=== PATIENT | female | born 1950 | race Caucasian/White ===

== ENCOUNTER 2019-01-18 09:25 | Inpatient (IN) | payer MEDICARE, BC ==
[2019-01-18] MEDS ORDERED: Ketorolac Tromethamine 30 MG/ML VIAL ONE (09:37)
[2019-01-18] MEDS ORDERED: Piperacillin/Tazobactam 3.375 GM VIAL ONE (09:37)
--- NOTE | 2019-01-18 11:05 | CT ---
CT OF BRAIN PERFORMED WITH AND WITHOUT CONTRAST ENHANCEMENT: HISTORY: Altered mental status and history of lung cancer. FINDINGS: Ventricular and cisternal system shows fairly age-appropriate change. There are no signs of intracer ebral hemorrhage or extraaxial fluid collections. On postcontrast images, I see no signs of any meta static disease. The mastoid air cells and visualized sinuses are clear. IMPRESSION: No acute intracranial abnormalities. POS: [facility]
--- NOTE | 2019-01-18 11:31 | CT ---
CT OF CHEST AND ABDOMEN AND PELVIS PERFORMED WITH IV CONTRAST ENHANCEMENT: Date: 01/18/19 HISTORY: Altered mental status, fever, lung cancer, and abdominal pain. COMPARISON: Most recent CT examination available which is 01/07/15. FINDINGS: CT CHEST: There has been development of apical pleural thickening in the left lung apex. This is new as compare d to the 2015 study. There is no bony destruction associated with this. There was a left upper lobe 5 mm pulmonary nodule which is no longer visualized. On the right side, there are parenchymal changes with some collapse associated with the right lower l obe. I am not certain whether this may be related to previous radiation. There are some calcified hil ar lymph nodes present. It would be helpful to have any interim films for comparison. There is no brittany dence of any new pulmonary nodules or evidence of any infiltrative process. Coronary artery calcifica tions are present. CT ABDOMEN: CT of abdomen was performed with contrast enhancement. Hypodensities within the liver appear to repre sent cysts. They were noted on the previous exam. The spleen, pancreas, and gallbladder regions appea r unremarkable. Right and left adrenal glands, and right and left kidneys are normal in size. There is no significant periaortic or mesenteric adenopathy. CT PELVIS: CT of pelvis was performed with contrast enhancement. A moderate amount of stool is seen in the recto sigmoid colon. Bladder is not distended. There is no pelvic lymphadenopathy or mass. Review of osseous structures do not show any evidence of any lytic or blastic bony change. IMPRESSION: 1. Area of apical pleural thickening involving the left upper lobe. This is new as compared to the 2 015 study. There are no bony destructive changes associated with this. This could be related to a noni plastic process. Another possibility is that the patient has had radiation to this area. Clinical cor relation is recommended. 2. Chronic atelectatic changes in the right lower lobe. This is probably also on the basis of previo us radiation. 3. Stable hepatic cysts. No acute findings of the abdomen or pelvis. POS: [facility]
--- NOTE | 2019-01-18 14:07 | HP ---
REASON FOR ADMISSION: Altered mental status, lactic acidosis, hyponatremia. HISTORY OF PRESENT ILLNESS: A 68-year-old female, who has underlying history of small cell lung cancer as well as history of hypertension, COPD, who was initially evaluated at [facility] for altered mental status. The patient is not able to provide any history and she is not participating with any history and examination, so it is very difficult to obtain any history from her, though most of the history obtained from emergency room record. As per emergency room report, she was seen normal 3 days ago. As per history, the patient ran out her blood pressure medication and her blood pressure was getting worse. She did not take any blood pressure medication for last 7 days. When she presented to [facility], she was hypertensive, tachycardic, and febrile with temperature of 101. CT brain was unremarkable. She had lumbar puncture done that also came back negative. At [facility], she remained hypertensive and tachycardic. She was given Tylenol 1 g and vancomycin and IV fluid, and subsequently, she was sent to our emergency room for evaluation. The patient has history of lung cancer and previously she followed by Dr. Hyman and Dr. Vallejo. Current status of her cancer is not known. In our emergency room, the patient had CT abdomen and pelvis, which showed area of apical pleural thickening in left upper lobe, chronic changes noted in the right lower lobe. PAST MEDICAL HISTORY: Small cell lung cancer, hypertension, COPD/asthma, history of tobacco abuse disorder, and degenerative joint disease. PAST PSYCHIATRIC HISTORY: Anxiety and depression. PAST SURGICAL HISTORY: x1, tonsillectomy, right ankle surgery, and lung biopsy. ALLERGIES: LISINOPRIL GIVES ANAPHYLAXIS. PENICILLIN GIVES ANAPHYLAXIS. MORPHINE GIVES NAUSEA AND VOMITING. CURRENT HOME MEDICATIONS: 1. Aspirin 81 mg daily. 2. Metoprolol. 3. Breo Ellipta. 4. Azelastine nasal spray. The patient did not bring her medication, so unable to verify. EMERGENCY ROOM COURSE: The patient is given Tylenol 1 g, vancomycin 1.5 g, and IV fluid at [facility]. SOCIAL HISTORY: The patient has history of smoking in the past. She abuses marijuana. She also has history of smoking. It is unclear whether the patient quit smoking completely. FAMILY HISTORY: Nothing significant and the patient is not able to provide any family history at this point. Based on old record, the patient has family history of NE to her mother in her 50s and colon and lung cancer also runs among several family members. REVIEW OF SYSTEMS: All review of system tried to review with the patient, but unable to review at this point because of altered mental status. PHYSICAL EXAMINATION: VITAL SIGNS: Currently, blood pressure 174/89, pulse 124, respiratory rate 24, temperature 100.1, saturation 99% on room air, and initially, temperature 101 and she was hypertensive. GENERAL: The patient is completely disoriented, arousable, not following any significant command. HEENT: Head; normocephalic, atraumatic. Eyes; pupils round and reactive to light. Extraocular muscle intact. ENT, dry mucous membranes. No oral lesion. No pharyngeal erythema. No exudate. NECK: Supple. No JVD. No thyromegaly. No carotid bruit. LUNGS: Coarse breath sounds, but no obvious rhonchi or rales. No wheeze. No accessory muscles of respiration in use. CARDIAC: S1-S2 regular. Tachycardia. No murmur. No gallop. No rub. ABDOMEN: Soft. Bowel sounds present. Nontender. Nondistended. No organomegaly. No mass. No suprapubic tenderness. BACK: Unremarkable. No CVA tenderness. EXTREMITIES: Upper extremity, passive movement of all joints is normal. Lower extremity, no edema. Good distal pulsation. SKIN: No skin rash. HEMATOLOGICAL SYSTEM: No lymphadenopathy. NEUROLOGIC: The patient is moving all 4 limbs. The patient is altered, so detailed neurological examination is not possible. PSYCHIATRIC: Unable to assess at this point, but based on the report, the patient has history of depression and she also expressed herself to her about suicidal ideation. IMAGING STUDIES: EKG showing sinus tachycardia, right atrial enlargement. Head CT based on my review, no acute intracranial process. CT of chest, abdomen and pelvis showing new apical pleural thickening. LABORATORY DATA: CBC; WBC 11.7, hemoglobin 14.9, and platelet 252. BMP; sodium 128, potassium 4.0, chloride 85, carbon dioxide 25, anion gap 22, BUN 15, creatinine 1.03, glucose 133, and calcium 10.6. Lactic acid 4.7 and then repeat one 2.0. LFT; AST 30, ALT 21, alkaline phosphatase 97, and albumin 4.8. Urinalysis; rbc present, protein plus, ketone plus. CSF negative for any infection. Urine drug screen positive for cannabinoids. Serum drug screen negative. ASSESSMENT AND PLAN: 1. Acute encephalopathy suspecting metabolic as well as possibly sepsis related. CT brain is negative and I could not see any focal neurological deficit. The patient has hyponatremia, lactic acidosis, and possibly sepsis is contributing to her encephalopathy. Her CSF is unremarkable. 2. Sepsis, unclear source. CSF is negative for infection. Chest x-ray and CT chest showing new apical pleural thickening in left upper lobe, but this could be new cancer versus old cancer versus radiation changes. The patient also has chronic atelectatic changes on the right lower lobe. Underlying aspiration cannot be entirely excluded. Her urinalysis showing hematuria. We will follow up on blood and urine culture result. We will start empiric antibiotic therapy with vancomycin and levofloxacin. 3. Hyponatremia, suspecting from syndrome of inappropriate antidiuretic hormone secretion, but we will give her IV fluid given dehydration. We will repeat BMP tomorrow. 4. Lactic acidosis, likely related with sepsis. Repeat lactic acid level is normal. Source of infection is not clear. 5. History of lung cancer. Status of her lung cancer is not known. We will obtain old record and get more information. 6. Anxiety and depression. The patient will need [facility] evaluation given her suicidal ideation at home. We will continue her antidepression medication after confirmation. 7. Chronic obstructive pulmonary disease/asthma. We will continue DuoNeb therapy q.6 hourly. 8. Hypertension with hypertensive urgency. We will use clonidine and labetalol p.r.n. basis. 9. Deep venous thrombosis prophylaxis, Lovenox 40 mg subcu daily. 10. Gastrointestinal prophylaxis, Pepcid 20 mg p.o. or IV b.i.d. CODE STATUS: The patient will be kept as a full code. The patient does not have any surrogate decision maker. Cannabis abuse. DISPOSITION PLAN: Based on clinical course, we are expecting the patient's stay in hospital more than 2 midnights. Plan of care discussed with the patient in detail. Job ID: [id number]
[2019-01-18] MEDS ORDERED: Ondansetron ODT 4 MG TAB SL PRN (14:47)
[2019-01-18] MEDS ORDERED: Ondansetron PF 4 MG/2 ML Vial IVP PRN (14:47)
[2019-01-18] MEDS ORDERED: Acetaminophen 325 MG TAB PO PRN ×2 (14:47→15:06)
[2019-01-18] MEDS ORDERED: Sodium Chloride 0.9% 1,000 ML IV SCH (14:47)
[2019-01-18] MEDS ORDERED: Cepastat Lozenges 1 LOZ PO PRN (15:06)
[2019-01-18] MEDS ORDERED: Artificial Tears 18 DROP/0.9 ML EA EYE PRN (15:06)
[2019-01-18] MEDS ORDERED: Bisacodyl 10 MG SUPP PR PRN (15:06)
[2019-01-18] MEDS ORDERED: Senokot S 8.6-50 MG TAB PO PRN (15:06)
[2019-01-18] MEDS ORDERED: Zolpidem Tartrate 5 MG TAB PO PRN (15:06)
[2019-01-18] MEDS ORDERED: Diabetic Tussin 200 MG/10 ML UDCUP PO PRN (15:06)
[2019-01-18] MEDS ORDERED: Pharmacy to Dose 1 EACH VANCOMYCIN IVPB PRN ×2 (15:06→15:13)
[2019-01-18] MEDS ORDERED: Calcium Carbonate 500 MG ChewTAB PO PRN (15:06)
[2019-01-18] MEDS ORDERED: Sodium Chloride 0.65% Nasal 44 ML BOT EA NARE PRN (15:06)
[2019-01-18] MEDS ORDERED: Loperamide HCl 2 MG CAP PO PRN (15:06)
[2019-01-18] MEDS ORDERED: cloNIDine 0.1 MG TAB PO PRN (15:06)
[2019-01-18] MEDS ORDERED: Loratadine 10 MG TAB PO PRN (15:06)
[2019-01-18 15:09] VITALS: BMI 23.0
[2019-01-18] MEDS ORDERED: Multivitamins, Adult 10 ML, Thiamine HCl 100 MG, Folic Acid 1 MG in Dextrose 5 %-0.45 %... IV SCH ×3 (16:00→16:30)
[2019-01-18] MEDS: Dextrose 5 % And 0.9 % NaCl 1,000 ML IV SCH (16:32)
[2019-01-18 17:12] LABS: Amphetamine Not Detected (NotDetected); Barbiturates Screen Not Detected (NotDetected); Benzodiazepine Screen Not Detected (NotDetected); Cocaine Metabolite Screen Not Detected (NotDetected); Medtox Control Line Valid? VALID (VALID); Medtox Reader # READER 4; Methadone Not Detected (NotDetected); Methamphetamine Not Detected (NotDetected); Opiate Screen Not Detected (NotDetected); Oxycodone Screen Not Detected (NotDetected); Phencyclidine (PCP) Not Detected (NotDetected); THC/Cannabinoid Screen Detected (NotDetected); Tricyclic Screen Not Detected (NotDetected)
[2019-01-18] MEDS ORDERED: ISOVUE-370 76%-LOCM 1 ML ONE (18:14)
[2019-01-18] MEDS ORDERED: Sodium Chloride 0.9% 500 ML IV SCH (19:45)
[2019-01-18] MEDS: Famotidine/PF 20 mg/2ml Vial SLOW IVP SCH (20:17)
[2019-01-18] MEDS: Famotidine 20 MG TAB PO SCH (21:19)
[2019-01-18] MEDS ORDERED: Labetalol HCl 100 MG/20 ML VIAL SLOW IVP PRN (22:33)
[2019-01-18] MEDS ORDERED: Vancomycin HCl 1.5 GM in Sodium Chloride 0.9% 250 ML 300 ML IVPB SCH (22:45)
[2019-01-19] MEDS: Dextrose 5 % And 0.9 % NaCl 1,000 ML IV SCH ×3 (03:54→22:43)
[2019-01-19] MEDS ORDERED: Lorazepam 2 MG/ML VIAL SLOW IVP SCH (04:45)
[2019-01-19 05:22] LABS: #Lymphocytes 0.4 thou/uL (1.20-3.40); #Monocytes 0.8 thou/uL (0.11-0.59); #Neutrophils 7.4 thou/uL (1.40-6.50); %Eosinophils 0.1 % (0.0-10.0); %Monocytes 9.5 % (0.0-10.0); %Neutrophils 85.4 % (42.0-75.0); Hemoglobin 13.8 g/dL (12.0-16.0); Mean Corpuscular HGB CONC 34.4 g/dL (32.0-36.0); Mean Corpuscular Hemoglobin 31.8 pg (27.0-31.0); Mean Corpuscular Volume 92.6 fL (78.0-98.0); Mean Platelet Volume 6.4 fL (7.4-10.4); Platelet Count 215 thou/uL (130-400); RBC Distribution Width 12.5 % (11.5-14.5); Red Blood Cell (RBC) Count 4.33 mill/uL (4.20-5.40); White Blood Cell (WBC) Count 8.7 thou/uL (4.8-10.8)
[2019-01-19 05:49] LABS: ALT (SGPT) 20 U/L (8-55); AST (SGOT) 42 U/L (5-34); Albumin 4.1 g/dL (3.4-4.8); Alkaline Phosphatase 74 U/L (40-110); Anion Gap 15 mmol/L (10-20); BUN (Urea Nitrogen) 10 mg/dL (9.8-20.1); Bilirubin, Total 0.6 mg/dL (0.2-1.2); Calc. Creatinine Clearance 51 mL/min (70-130); Calcium 9.1 mg/dL (7.8-10.44); Carbon Dioxide 25 mmol/L (23-31); Chloride 91 mmol/L (98-107); Estimated GFR-MDRD 62; Glucose 129 mg/dL (80-115); Magnesium 1.3 mg/dL (1.6-2.6); Protein, Total 7.1 g/dL (6.0-8.3); Sodium 128 mmol/L (136-145)
[2019-01-19] MEDS ORDERED: Lorazepam 1 MG TAB PO PRN (05:51)
[2019-01-19] MEDS ORDERED: Magnesium Sulfate 4 GM in Sodium Chloride 0.9% 250 ML 250 ML IVPB SCH (07:30)
[2019-01-19] MEDS: Cyanocobalamin (Vitamin B-12) 1,000 MCG TAB PO SCH (08:29)
[2019-01-19] MEDS: Multivitamin W/ Minerals 1 TAB PO SCH (08:30)
[2019-01-19] MEDS: Famotidine 20 MG TAB PO SCH ×2 (08:30→23:57)
[2019-01-19] MEDS: Saccharomyces boulardii 250 MG CAP PO SCH (08:30)
[2019-01-19] MEDS: Thiamine 100 MG TAB PO SCH (08:30)
[2019-01-19] MEDS: Folic Acid 1 MG TAB PO SCH (08:30)
[2019-01-19] MEDS: Famotidine/PF 20 mg/2ml Vial SLOW IVP SCH ×2 (08:37→20:24)
[2019-01-19] MEDS: Enoxaparin Sodium 40 MG/0.4 ML SYRINGE SC SCH (08:37)
--- NOTE | 2019-01-19 08:55 | RAD ---
FRONTAL RADIOGRAPH CHEST PORTABLE UPRIGHT: DATE: 01/19/2019. COMPARISON: None. HISTORY: Lung cancer, sepsis. FINDINGS: There is a mass density in the suprahilar region on the right which measures 3.1 cm in transverse dim ension, better assessed on recent CT examination of the chest performed 06/20/2018. There is increased soft tissue density in the left lung apex as well, also better evaluated on recent CT. No focal consolidation or alveolar edema. IMPRESSION: Mass-like opacity in the right perihilar region and left lung apex. No focal consolidation or alveol ar edema. POS: [facility]
[2019-01-19] MEDS ORDERED: Prevnar 13-Val Conj/PF 0.5 ML SYRINGE IM ONE (09:00)
--- NOTE | 2019-01-19 10:37 | PDOC.HOSPP ---
- Subjective Encounter Date: 01/19/19 Encounter Time: 09:45 Subjective: pt is still does not want to talk, she opens her eye but does not talk, her bedside, no fever today - Objective Vital Signs & Weight: Vital Signs (12 hours) Temp Pulse Resp BP BP Pulse Ox 01/19/19 08:10 154/72 H 01/19/19 08:02 95 01/19/19 07:30 97.5 F L 119 H 18 154/72 H 18 L 01/19/19 04:50 166/90 H 01/19/19 04:33 113 H 166/90 H 01/19/19 04:01 124 H 174/93 H 01/19/19 03:47 97.9 F 123 H 16 192/86 H 94 L 01/19/19 03:19 95 01/19/19 00:15 159/80 H 01/19/19 00:00 98.5 F 122 H 16 159/80 H 92 L Weight Weight 118 lb I&O: 01/18/19 01/19/19 01/20/19 06:59 06:59 06:59 Intake Total 1250 Output Total 825 600 Balance 425 -600 Result Diagrams: 01/19/19 05:10 01/19/19 05:10 Additional Labs: Accuchecks 01/18/19 01/18/19 19:35 16:48 POC Glucose 105 116 H Radiology Reviewed by me: Yes (chest xray reviewed) EKG Reviewed by me: Yes (nsr) Hospitalist ROS - Review of Systems ROS unobtainable: due to mental status - Medication Medications: Active Medications Generic Name Dose Route Start Last Admin Trade Name Catrina PRN Reason Stop Dose Admin Cyanocobalamin 1,000 mcg 01/19/19 09:00 01/19/19 08:29 Vitamin B-12 PO Not Given DAILY [facility] Enoxaparin Sodium 40 mg 01/19/19 09:00 01/19/19 08:37 Lovenox SC 40 mg 0900 DENISE Administration Famotidine 20 mg 01/18/19 21:00 01/19/19 08:37 Pepcid SLOW IVP 20 mg Q12HR DENISE Administration Famotidine 20 mg 01/18/19 21:00 01/19/19 08:30 Pepcid PO Not Given BID DENISE Folic Acid 1 mg 01/19/19 09:00 01/19/19 08:30 Folvite PO Not Given DAILY [facility] Levofloxacin 750 mg/ Device 150 mls @ 100 mls/hr 01/18/19 16:00 01/18/19 18: 07 IVPB 150 mls 1600 DENISE Administration Dextrose/Sodium Chloride 1,000 mls @ 100 mls/hr 01/18/19 15:06 01/19/19 03:54 D5 0.9% Ns IV 1,000 mls .Q10H DENISE Administration Iron/Minerals/Multivitamins 1 tab 01/19/19 09:00 01/19/19 08:30 Theragran M PO Not Given DAILY [facility] Labetalol HCl 20 mg 01/18/19 22:33 01/19/19 04:01 Normodyne SLOW IVP 01/19/19 22:34 20 mg ONE PRN Administration SBP Greater Than 170 Saccharomyces Boulardii 250 mg 01/19/19 09:00 01/19/19 08:30 Florastor PO Not Given DAILY [facility] Thiamine HCl 100 mg 01/19/19 09:00 01/19/19 08:30 Thiamine PO Not Given DAILY [facility] - Exam General Appearance: NAD Eye: PERRL, anicteric sclera ENT: normocephalic atraumatic, no oropharyngeal lesions Neck: supple, symmetric, no JVD, no thyromegaly Heart: RRR, no murmur, no gallops, no rubs Respiratory: CTAB, no wheezes, no rales, no ronchi Gastrointestinal: soft, non-tender, non-distended, normal bowel sounds Extremities: no cyanosis, no clubbing, no edema Skin: normal turgor, no lesions, no rashes Neurological: no focal deficits Musculoskeletal: normal tone, normal strength Hosp A/P (1) Acute metabolic encephalopathy Code(s): G93.41 - METABOLIC ENCEPHALOPATHY Status: Acute (2) Sepsis Code(s): A41.9 - SEPSIS, UNSPECIFIED ORGANISM Status: Acute (3) Hypomagnesemia Code(s): E83.42 - HYPOMAGNESEMIA Status: Acute (4) Hyponatremia Code(s): E87.1 - HYPO-OSMOLALITY AND HYPONATREMIA Status: Acute (5) Hypokalemia Code(s): E87.6 - HYPOKALEMIA Status: Acute (6) Lactic acidosis Code(s): E87.2 - ACIDOSIS Status: Acute (7) Hypertension Code(s): I10 - ESSENTIAL (PRIMARY) HYPERTENSION Status: Chronic (8) H/O: lung cancer Code(s): Z85.118 - PERSONAL HISTORY OF MALIGNANT NEOPLASM OF BRONCHUS AND LUNG Status: Chronic (9) Anxiety and depression Code(s): F41.9 - ANXIETY DISORDER, UNSPECIFIED; F32.9 - MAJOR DEPRESSIVE DISORDER, SINGLE EPISODE, UNSPECIFIED Status: Chronic (10) COPD (chronic obstructive pulmonary disease) Status: Chronic (11) Alcohol abuse Code(s): F10.10 - ALCOHOL ABUSE, UNCOMPLICATED Status: Chronic - Plan old records reviewed/req, plan discussed w/ family, continue antibiotics 01/19/19- replace potassium, replace magnesium, follow culture result, discussed with , correct metabolic parameter and see how much she improves, suspecting underlying psychiatry problem as well, continue folic acid , vitamin B12, thiamin and theragram M, will repeat labs tomorrow, medication reviewed as above, symptomatic treatment, start PT, sitter bedside
[2019-01-19] MEDS: Potassium Chloride 10 MEQ in Premix Bag 1 BAG IVPB SCH ×3 (11:46→20:24)
[2019-01-19] MEDS: Labetalol HCl 100 MG/20 ML VIAL SLOW IVP PRN (15:17)
[2019-01-19] MEDS ORDERED: Lorazepam 2 MG/ML VIAL SLOW IVP PRN (21:31)
[2019-01-20] MEDS: Vancomycin HCl 500 MG in Sodium Chloride 0.9% 100 ML IVPB SCH ×2 (00:50→23:45)
[2019-01-20] MEDS ORDERED: Potassium Chloride 20 MEQ in Premix Bag 1 BAG IVPB SCH (03:00)
[2019-01-20] MEDS ORDERED: Dextrose 5 % And 0.9 % NaCl 1,000 ML IV SCH (07:13)
[2019-01-20] MEDS: Mometasone/Formoterol 120 PUFF INHALER INH SCH ×2 (07:48→19:57)
[2019-01-20] MEDS ORDERED: Mometasone/Formoterol 120 PUFF INHALER ONE (07:50)
[2019-01-20 07:51] LABS: #Lymphocytes 0.7 thou/uL (1.20-3.40); #Monocytes 0.9 thou/uL (0.11-0.59); #Neutrophils 5.9 thou/uL (1.40-6.50); %Basophils 0.2 % (0.0-1.0); %Eosinophils 0.5 % (0.0-10.0); %Lymphocytes 8.7 % (21.0-51.0); %Monocytes 11.3 % (0.0-10.0); %Neutrophils 79.2 % (42.0-75.0); Hemoglobin 13.6 g/dL (12.0-16.0); Mean Corpuscular HGB CONC 34.2 g/dL (32.0-36.0); Mean Corpuscular Hemoglobin 31.6 pg (27.0-31.0); Mean Corpuscular Volume 92.5 fL (78.0-98.0); Mean Platelet Volume 6.5 fL (7.4-10.4); Platelet Count 217 thou/uL (130-400); RBC Distribution Width 12.4 % (11.5-14.5); Red Blood Cell (RBC) Count 4.32 mill/uL (4.20-5.40); White Blood Cell (WBC) Count 7.5 thou/uL (4.8-10.8)
[2019-01-20] MEDS ORDERED: Potassium Chloride 20 MEQ in Sodium Chloride 0.9% 250 ML 250 ML IVPB SCH (08:00)
[2019-01-20 08:12] LABS: Anion Gap 12 mmol/L (10-20); BUN (Urea Nitrogen) 10 mg/dL (9.8-20.1); Calc. Creatinine Clearance 51 mL/min (70-130); Calcium 9.2 mg/dL (7.8-10.44); Carbon Dioxide 26 mmol/L (23-31); Chloride 95 mmol/L (98-107); Estimated GFR-MDRD 62; Glucose 106 mg/dL (80-115); Magnesium 2.2 mg/dL (1.6-2.6); Potassium 3.1 mmol/L (3.5-5.1); Sodium 130 mmol/L (136-145)
[2019-01-20 08:18] LABS: Phosphorus 1.9 mg/dL (2.3-4.7)
[2019-01-20] MEDS ORDERED: Potassium Phosphate 30 MMOL in Sodium Chloride 0.9% 500 ML IVPB SCH (08:45)
[2019-01-20] MEDS ORDERED: AZELASTINE HCL EA NARE SCH (09:00)
[2019-01-20] MEDS ORDERED: Non-Formulary Item 1 EACH (Fluticasone/Vilanterol [Breo Ellipta] 1 INH) PO SCH (09:00)
[2019-01-20] MEDS ORDERED: Non-Formulary Item 1 EACH (Sertraline Hcl [Zoloft] 100 MG) PO SCH (09:00)
[2019-01-20] MEDS: Famotidine/PF 20 mg/2ml Vial SLOW IVP SCH (09:36)
[2019-01-20] MEDS: Dextrose 5 % And 0.9 % NaCl 1,000 ML IV SCH (09:37)
[2019-01-20] MEDS: Saccharomyces boulardii 250 MG CAP PO SCH (09:38)
[2019-01-20] MEDS: Cyanocobalamin (Vitamin B-12) 1,000 MCG TAB PO SCH (09:38)
[2019-01-20] MEDS: Multivitamin W/ Minerals 1 TAB PO SCH (09:38)
[2019-01-20] MEDS: Famotidine 20 MG TAB PO SCH ×2 (09:38→20:45)
[2019-01-20] MEDS: Enoxaparin Sodium 40 MG/0.4 ML SYRINGE SC SCH (09:39)
[2019-01-20] MEDS: Thiamine 100 MG TAB PO SCH (09:39)
[2019-01-20] MEDS: Folic Acid 1 MG TAB PO SCH (09:39)
[2019-01-20] MEDS: Azelastine 137 MCG/Spray 30 ML NS SCH ×2 (09:40→20:47)
--- NOTE | 2019-01-20 09:59 | PDOC.HOSPP ---
- Subjective Encounter Date: 01/20/19 Encounter Time: 07:00 Subjective: today pt is talking but still she has irrelevant talk, no fever, bedside Patient seen and examined. No new complaints. No overnight events - Objective Vital Signs & Weight: Vital Signs (12 hours) Temp Pulse Resp BP Pulse Ox 01/20/19 07:48 116 H 20 97 01/20/19 07:30 98.1 F 117 H 20 176/90 H 96 01/20/19 04:18 96.7 F L 104 H 20 152/80 H 97 01/20/19 03:12 94 L Weight Weight 118 lb I&O: 01/19/19 01/20/19 01/21/19 06:59 06:59 06:59 Intake Total 1250 Output Total 825 875 Balance 425 -875 Result Diagrams: 01/20/19 07:25 01/20/19 07:25 EKG Reviewed by me: Yes (sinus tachycardia) Hospitalist ROS - Review of Systems ROS unobtainable: due to mental status - Medication Medications: Active Medications Generic Name Dose Route Start Last Admin Trade Name Damianq PRN Reason Stop Dose Admin Cyanocobalamin 1,000 mcg 01/19/19 09:00 01/19/19 08:29 Vitamin B-12 PO Not Given DAILY [facility] Enoxaparin Sodium 40 mg 01/19/19 09:00 01/19/19 08:37 Lovenox SC 40 mg 0900 DENISE Administration Famotidine 20 mg 01/18/19 21:00 01/19/19 23:57 Pepcid PO Not Given BID [facility] Folic Acid 1 mg 01/19/19 09:00 01/19/19 08:30 Folvite PO Not Given DAILY [facility] Levofloxacin 750 mg/ Device 150 mls @ 100 mls/hr 01/18/19 16:00 01/19/19 15: 22 IVPB 150 mls 1600 DENISE Administration Vancomycin HCl 500 mg/ Sodium 100 mls @ 100 mls/hr 01/19/19 23:00 01/20/19 00 :50 Chloride IVPB 100 mls 2300 DENISE Administration Iron/Minerals/Multivitamins 1 tab 01/19/19 09:00 01/19/19 08:30 Theragran M PO Not Given DAILY [facility] Labetalol HCl 20 mg 01/18/19 15:06 01/19/19 15:17 Normodyne SLOW IVP 4 ml Q4H PRN Administration SBP > 180 and HR >/= 70 Lorazepam 0.5 mg 01/19/19 21:31 01/19/19 21:47 Ativan SLOW IVP 0.5 mg Q4H PRN Administration Anxiety/Agitation Mometasone Furoate/Formoterol Fumar 2 puff 01/20/19 18:30 01/20/19 07:48 Dulera 100 Mcg/5 Mcg Inhaler INH 2 puff BID-RT DENISE Administration Saccharomyces Boulardii 250 mg 01/19/19 09:00 01/19/19 08:30 Florastor PO Not Given DAILY [facility] Thiamine HCl 100 mg 01/19/19 09:00 01/19/19 08:30 Thiamine PO Not Given DAILY [facility] - Exam General Appearance: NAD, awake alert Eye: PERRL, anicteric sclera ENT: normocephalic atraumatic, no oropharyngeal lesions Neck: supple, symmetric, no JVD, no thyromegaly Heart: RRR, no murmur, no gallops, no rubs Heart - other findings: tachycardia Respiratory: no rales, wheezes Gastrointestinal: soft, non-tender, non-distended, normal bowel sounds Extremities: no cyanosis, no clubbing, no edema Skin: normal turgor, no lesions Neurological: no focal deficits Musculoskeletal: normal tone, normal strength Psychiatric: normal affect, not oriented Hosp A/P (1) Acute metabolic encephalopathy Code(s): G93.41 - METABOLIC ENCEPHALOPATHY Status: Acute Plan: improving (2) Sepsis Code(s): A41.9 - SEPSIS, UNSPECIFIED ORGANISM Status: Acute Plan: so far culture negative, unclear source (3) Hypomagnesemia Code(s): E83.42 - HYPOMAGNESEMIA Status: Resolved (4) Hyponatremia Code(s): E87.1 - HYPO-OSMOLALITY AND HYPONATREMIA Status: Acute Plan: improving (5) Hypokalemia Code(s): E87.6 - HYPOKALEMIA Status: Acute (6) Lactic acidosis Code(s): E87.2 - ACIDOSIS Status: Resolved (7) Hypertension Code(s): I10 - ESSENTIAL (PRIMARY) HYPERTENSION Status: Chronic (8) H/O: lung cancer Code(s): Z85.118 - PERSONAL HISTORY OF MALIGNANT NEOPLASM OF BRONCHUS AND LUNG Status: Chronic (9) Anxiety and depression Code(s): F41.9 - ANXIETY DISORDER, UNSPECIFIED; F32.9 - MAJOR DEPRESSIVE DISORDER, SINGLE EPISODE, UNSPECIFIED Status: Chronic (10) COPD (chronic obstructive pulmonary disease) Status: Chronic (11) Alcohol abuse Code(s): F10.10 - ALCOHOL ABUSE, UNCOMPLICATED Status: Chronic (12) Hypophosphatemia Code(s): E83.39 - OTHER DISORDERS OF PHOSPHORUS METABOLISM Status: Acute - Plan old records reviewed/req, plan discussed w/ family, continue antibiotics, PT/OT , dc lois soto IVF 01/19/19- replace potassium, replace magnesium, follow culture result, discussed with , correct metabolic parameter and see how much she improves, suspecting underlying psychiatry problem as well, continue folic acid , vitamin B12, thiamin and theragram M, will repeat labs tomorrow, medication reviewed as above, symptomatic treatment, start PT, sitter bedside 01/20/19- today DC IVF, replace potassium phosphate, diet as tolerated, start PT /OT, continue empiric antibiotic today, discussed with , no need for sitter for suicide precaution. will repeat labs tomorrow, overall has some improvement,
[2019-01-20] MEDS ORDERED: Mometasone/Formoterol 120 PUFF INHALER INH SCH (18:30)
[2019-01-20 23:08] LABS: Vancomycin, Trough 8.3 ug/mL
[2019-01-20] MEDS ORDERED: Vancomycin HCl 750 MG in Sodium Chloride 0.9% 250 ML 250 ML IVPB SCH (23:59)
[2019-01-21] MEDS: Labetalol HCl 100 MG/20 ML VIAL SLOW IVP PRN (00:56)
[2019-01-21] MEDS: Mometasone/Formoterol 120 PUFF INHALER INH SCH ×2 (07:02→20:12)
[2019-01-21] MEDS ORDERED: K-Phos Neutral 250 MG TAB PO SCH (08:00)
[2019-01-21] MEDS: Saccharomyces boulardii 250 MG CAP PO SCH (08:38)
[2019-01-21] MEDS: Carvedilol 3.125 MG TAB PO SCH ×2 (08:38→18:21)
[2019-01-21] MEDS: Enoxaparin Sodium 40 MG/0.4 ML SYRINGE SC SCH (08:38)
[2019-01-21] MEDS: Folic Acid 1 MG TAB PO SCH (08:38)
[2019-01-21] MEDS: Amlodipine 5 MG TAB PO SCH (08:39)
[2019-01-21] MEDS: Thiamine 100 MG TAB PO SCH (08:39)
[2019-01-21] MEDS: Azelastine 137 MCG/Spray 30 ML NS SCH ×2 (08:45→21:32)
[2019-01-21] MEDS: Famotidine 20 MG TAB PO SCH ×3 (08:45→21:36)
[2019-01-21] MEDS: Cyanocobalamin (Vitamin B-12) 1,000 MCG TAB PO SCH (08:46)
[2019-01-21] MEDS: Multivitamin W/ Minerals 1 TAB PO SCH (08:46)
--- NOTE | 2019-01-21 09:36 | PDOC.HOSPP ---
- Subjective Encounter Date: 01/21/19 Encounter Time: 07:00 Subjective: pt is improving, she has memory issue and seems per is not a new problem , she is more alert and able to tell her name, . She is able to ambulate and eating OK - Objective Vital Signs & Weight: Vital Signs (12 hours) Temp Pulse Resp BP BP BP BP 01/21/19 08:39 110 H 01/21/19 07:56 98.1 F 102 H 20 188/95 H 01/21/19 07:02 107 H 12 01/21/19 06:51 01/21/19 06:50 107 H 12 01/21/19 04:00 97.8 F 99 18 163/80 H 01/21/19 03:23 01/21/19 01:35 96 173/80 H 01/21/19 01:10 102 H 18 01/21/19 00:56 112 H 189/89 H 01/20/19 23:59 98.1 F 112 H 18 183/89 H Pulse Ox 01/21/19 08:39 01/21/19 07:56 94 L 01/21/19 07:02 01/21/19 06:51 94 L 01/21/19 06:50 01/21/19 04:00 95 01/21/19 03:23 96 01/21/19 01:35 01/21/19 01:10 96 01/21/19 00:56 01/20/19 23:59 96 Weight Weight 118 lb I&O: 01/20/19 01/21/19 01/22/19 06:59 06:59 06:59 Intake Total 1115 360 Output Total 875 400 Balance -875 715 360 Result Diagrams: 01/20/19 07:25 01/20/19 07:25 EKG Reviewed by me: Yes (nsr) Hospitalist ROS - Review of Systems Respiratory: denies: cough, dry, shortness of breath, hemoptysis, SOB with excertion, pleuritic pain, sputum, wheezing, other Cardiovascular: denies: chest pain, palpitations, orthopnea, paroxysmal noc. dyspnea, edema, light headedness, other Gastrointestinal: denies: nausea, vomiting, abdominal pain, diarrhea, constipation, melena, hematochezia, other Genitourinary: denies: dysuria, frequency, incontinence, hematuria, retention, other Musculoskeletal: denies: neck pain, shoulder pain, arm pain, back pain, hand pain, leg pain, foot pain, other Other: not reliable due to her cognitive dysfunction - Medication Medications: Active Medications Generic Name Dose Route Start Last Admin Trade Name Freq PRN Reason Stop Dose Admin Acetaminophen 650 mg 01/18/19 15:06 01/20/19 09:39 Tylenol PO 650 mg Q4H PRN Administration Headache/Fever/Mild Pain (1-3) Albuterol/Ipratropium 3 ml 01/20/19 13:00 01/21/19 06:50 Duoneb NEB 3 ml [id number] DENISE Administration Amlodipine Besylate 5 mg 01/21/19 09:00 01/21/19 08:39 Norvasc PO 5 mg DAILY DENISE Administration Azelastine HCl 0 ml 01/20/19 09:00 01/21/19 08:45 Azelastine NS 2 spr BID DENISE Administration Carvedilol 3.125 mg 01/21/19 08:00 01/21/19 08:38 Coreg PO 3.125 mg BID-WM DENISE Administration Cyanocobalamin 1,000 mcg 01/19/19 09:00 01/21/19 08:46 Vitamin B-12 PO 1,000 mcg DAILY DENISE Administration Enoxaparin Sodium 40 mg 01/19/19 09:00 01/21/19 08:38 Lovenox SC 40 mg 0900 DENISE Administration Famotidine 20 mg 01/18/19 21:00 01/21/19 08:45 Pepcid PO 20 mg BID DENISE Administration Folic Acid 1 mg 01/19/19 09:00 01/21/19 08:38 Folvite PO 1 mg DAILY DENISE Administration Iron/Minerals/Multivitamins 1 tab 01/19/19 09:00 01/21/19 08:46 Theragran M PO 1 tab DAILY DENISE Administration Labetalol HCl 20 mg 01/18/19 15:06 01/21/19 00:56 Normodyne SLOW IVP 4 ml Q4H PRN Administration SBP > 180 and HR >/= 70 Lorazepam 0.5 mg 01/19/19 21:31 01/19/19 21:47 Ativan SLOW IVP 0.5 mg Q4H PRN Administration Anxiety/Agitation Mometasone Furoate/Formoterol Fumar 2 puff 01/20/19 18:30 01/21/19 07:02 Dulera 100 Mcg/5 Mcg Inhaler INH 2 puff BID-RT DENISE Administration Saccharomyces Boulardii 250 mg 01/19/19 09:00 01/21/19 08:38 Florastor PO 250 mg DAILY DENISE Administration Sertraline HCl 100 mg 01/20/19 09:00 01/21/19 08:39 Zoloft PO 100 mg DAILY DENISE Administration Sodium Chloride 10 ml 01/19/19 21:37 01/21/19 00:59 Flush - Normal Saline IVF 10 ml PRN PRN Administration Saline Flush Thiamine HCl 100 mg 01/19/19 09:00 01/21/19 08:39 Thiamine PO 100 mg DAILY DENISE Administration - Exam General Appearance: NAD, awake alert Eye: PERRL, anicteric sclera ENT: normocephalic atraumatic, no oropharyngeal lesions Neck: supple, symmetric, no JVD, no thyromegaly Heart: RRR, no murmur, no gallops, no rubs, normal peripheral pulses Respiratory: CTAB, no wheezes, no rales, no ronchi Gastrointestinal: soft, non-tender, non-distended, normal bowel sounds, no palpable masses, no hepatomegaly, no splenomegaly Extremities: no cyanosis, no clubbing, no edema Skin: normal turgor, no lesions, no rashes Neurological: cranial nerve grossly intact, no focal deficits Musculoskeletal: normal tone, normal strength Psychiatric: normal affect, normal behavior Hosp A/P (1) Acute metabolic encephalopathy Code(s): G93.41 - METABOLIC ENCEPHALOPATHY Status: Acute Plan: improving (2) Sepsis Code(s): A41.9 - SEPSIS, UNSPECIFIED ORGANISM Status: Acute Qualifiers: Sepsis type: sepsis due to unspecified organism Plan: unclear source, culture negative, no fever since admission (3) Hypomagnesemia Code(s): E83.42 - HYPOMAGNESEMIA Status: Resolved (4) Hyponatremia Code(s): E87.1 - HYPO-OSMOLALITY AND HYPONATREMIA Status: Acute (5) Hypokalemia Code(s): E87.6 - HYPOKALEMIA Status: Acute (6) Lactic acidosis Code(s): E87.2 - ACIDOSIS Status: Resolved (7) Hypertension Code(s): I10 - ESSENTIAL (PRIMARY) HYPERTENSION Status: Chronic (8) H/O: lung cancer Code(s): Z85.118 - PERSONAL HISTORY OF MALIGNANT NEOPLASM OF BRONCHUS AND LUNG Status: Chronic (9) Anxiety and depression Code(s): F41.9 - ANXIETY DISORDER, UNSPECIFIED; F32.9 - MAJOR DEPRESSIVE DISORDER, SINGLE EPISODE, UNSPECIFIED Status: Chronic (10) COPD (chronic obstructive pulmonary disease) Status: Chronic (11) Alcohol abuse Code(s): F10.10 - ALCOHOL ABUSE, UNCOMPLICATED Status: Chronic (12) Hypophosphatemia Code(s): E83.39 - OTHER DISORDERS OF PHOSPHORUS METABOLISM Status: Acute - Plan old records reviewed/req, plan discussed w/ family, PT/OT 01/19/19- replace potassium, replace magnesium, follow culture result, discussed with , correct metabolic parameter and see how much she improves, suspecting underlying psychiatry problem as well, continue folic acid , vitamin B12, thiamin and theragram M, will repeat labs tomorrow, medication reviewed as above, symptomatic treatment, start PT, sitter bedside 01/20/19- today DC IVF, replace potassium phosphate, diet as tolerated, start PT /OT, continue empiric antibiotic today, discussed with , no need for sitter for suicide precaution. will repeat labs tomorrow, overall has some improvement, 01/21/19- today dc vancomycin as culture negative, change po levaquin, for hypertension add amlodipine and coreg and increase dose as needed, she will need outpt neurology clinic appointment for dementia evaluation, she will need routine follow up at [facility] for her cancer history, I have discussed with about this, I will repeat labs tomorrow, ambulate as tolerated, and start discharge planning, expecting in 24-48 hours
[2019-01-21] MEDS ORDERED: Ondansetron ODT 4 MG TAB PO PRN (10:19)
[2019-01-21] MEDS: K-Phos Neutral 250 MG TAB PO SCH ×3 (10:47→18:21)
[2019-01-22 05:39] LABS: #Eosinphils 0.2 thou/uL (0.0-0.7); #Lymphocytes 0.4 thou/uL (1.20-3.40); #Monocytes 0.6 thou/uL (0.11-0.59); %Eosinophils 4.1 % (0.0-10.0); %Lymphocytes 7.8 % (21.0-51.0); %Neutrophils 76.2 % (42.0-75.0); Hemoglobin 12.6 g/dL (12.0-16.0); Mean Corpuscular HGB CONC 34.4 g/dL (32.0-36.0); Mean Corpuscular Hemoglobin 32.2 pg (27.0-31.0); Mean Corpuscular Volume 93.7 fL (78.0-98.0); Mean Platelet Volume 6.7 fL (7.4-10.4); Platelet Count 193 thou/uL (130-400); RBC Distribution Width 12.2 % (11.5-14.5); Red Blood Cell (RBC) Count 3.91 mill/uL (4.20-5.40); White Blood Cell (WBC) Count 5.2 thou/uL (4.8-10.8)
[2019-01-22 07:10] LABS: Anion Gap 14 mmol/L (10-20); BUN (Urea Nitrogen) 15 mg/dL (9.8-20.1); Calc. Creatinine Clearance 47 mL/min (70-130); Calcium 8.8 mg/dL (7.8-10.44); Carbon Dioxide 26 mmol/L (23-31); Chloride 91 mmol/L (98-107); Estimated GFR-MDRD 57; Glucose 90 mg/dL (80-115); Phosphorus 3.8 mg/dL (2.3-4.7); Potassium 3.1 mmol/L (3.5-5.1); Sodium 128 mmol/L (136-145)
[2019-01-22] MEDS: Mometasone/Formoterol 120 PUFF INHALER INH SCH (07:18)
[2019-01-22] MEDS: Saccharomyces boulardii 250 MG CAP PO SCH (08:54)
[2019-01-22] MEDS: Amlodipine 5 MG TAB PO SCH (08:54)
[2019-01-22] MEDS: Folic Acid 1 MG TAB PO SCH (08:55)
[2019-01-22] MEDS: Famotidine 20 MG TAB PO SCH (08:55)
[2019-01-22] MEDS: Cyanocobalamin (Vitamin B-12) 1,000 MCG TAB PO SCH (08:55)
[2019-01-22] MEDS: Carvedilol 3.125 MG TAB PO SCH (08:55)
[2019-01-22] MEDS: Multivitamin W/ Minerals 1 TAB PO SCH (08:55)
[2019-01-22] MEDS: Potassium Chloride 20 MEQ TAB PO SCH ×2 (08:55→17:41)
[2019-01-22] MEDS: Thiamine 100 MG TAB PO SCH (08:55)
[2019-01-22] MEDS: Enoxaparin Sodium 40 MG/0.4 ML SYRINGE SC SCH (08:56)
[2019-01-22] MEDS: Azelastine 137 MCG/Spray 30 ML NS SCH (09:02)
[2019-01-22] MEDS ORDERED: Metoprolol Tartrate 50 MG TAB PO SCH ×2 (10:15→21:00)
--- NOTE | 2019-01-22 10:17 | PDOC.HOSPP ---
- Subjective Encounter Date: 01/22/19 Encounter Time: 07:30 Subjective: pt is confused, tachycardic, sodium still low, weak - Objective Vital Signs & Weight: Vital Signs (12 hours) Temp Pulse Resp BP BP BP Pulse Ox 01/22/19 08:54 128 H 01/22/19 08:00 98.2 F 128 H 18 138/80 97 01/22/19 07:17 113 H 18 98 01/22/19 03:57 98.1 F 112 H 18 157/86 H 93 L 01/22/19 03:17 97 01/22/19 00:00 146/67 H 01/21/19 23:55 98.1 F 97 18 146/67 H 94 L Weight Weight 118 lb I&O: 01/21/19 01/22/19 01/23/19 06:59 06:59 06:59 Intake Total 1115 1000 200 Output Total 400 Balance 715 1000 200 Result Diagrams: 01/22/19 05:23 01/22/19 05:23 EKG Reviewed by me: Yes Hospitalist ROS - Review of Systems ENT: denies: ear pain, ear discharge, nose pain, nose discharge, nose congestion , mouth pain, mouth swelling, throat pain, throat swelling, other Respiratory: denies: cough, dry, shortness of breath, hemoptysis, SOB with excertion, pleuritic pain, sputum, wheezing, other Cardiovascular: denies: chest pain, palpitations, orthopnea, paroxysmal noc. dyspnea, edema, light headedness, other Gastrointestinal: denies: nausea, vomiting, abdominal pain, diarrhea, constipation, melena, hematochezia, other Genitourinary: denies: dysuria, frequency, incontinence, hematuria, retention, other Musculoskeletal: denies: neck pain, shoulder pain, arm pain, back pain, hand pain, leg pain, foot pain, other Neurological: reports: confusion. denies: weakness, numbness, incoordination, change in speech, seizures, other Other: not reliable due to confused status - Medication Medications: Active Medications Generic Name Dose Route Start Last Admin Trade Name Freq PRN Reason Stop Dose Admin Acetaminophen 650 mg 01/18/19 15:06 01/20/19 09:39 Tylenol PO 650 mg Q4H PRN Administration Headache/Fever/Mild Pain (1-3) Albuterol/Ipratropium 3 ml 01/20/19 13:00 01/22/19 07:17 Duoneb NEB 3 ml [id number] DENISE Administration Azelastine HCl 0 ml 01/20/19 09:00 01/22/19 09:02 Azelastine NS 2 spr BID DENISE Administration Carvedilol 3.125 mg 01/21/19 08:00 01/22/19 08:55 Coreg PO 3.125 mg BID-WM DENISE Administration Clonidine 0.1 mg 01/18/19 15:06 01/21/19 12:21 Catapres PO 0.1 mg Q4H PRN Administration SBP Greater Than 180 Cyanocobalamin 1,000 mcg 01/19/19 09:00 01/22/19 08:55 Vitamin B-12 PO 1,000 mcg DAILY DENISE Administration Enoxaparin Sodium 40 mg 01/19/19 09:00 01/22/19 08:56 Lovenox SC 40 mg 09 DENISE Administration Famotidine 20 mg 01/18/19 21:00 01/22/19 08:55 Pepcid PO 20 mg BID DENISE Administration Folic Acid 1 mg 01/19/19 09:00 01/22/19 08:55 Folvite PO 1 mg DAILY DENISE Administration Iron/Minerals/Multivitamins 1 tab 01/19/19 09:00 01/22/19 08:55 Theragran M PO 1 tab DAILY DENISE Administration Labetalol HCl 20 mg 01/18/19 15:06 01/21/19 00:56 Normodyne SLOW IVP 4 ml Q4H PRN Administration SBP > 180 and HR >/= 70 Levofloxacin 750 mg 01/22/19 06:00 01/22/19 05:24 Levaquin PO 750 mg 0600 DENIES Administration Lorazepam 0.5 mg 01/19/19 21:31 01/19/19 21:47 Ativan SLOW IVP 0.5 mg Q4H PRN Administration Anxiety/Agitation Mometasone Furoate/Formoterol Fumar 2 puff 01/20/19 18:30 01/22/19 07:18 Dulera 100 Mcg/5 Mcg Inhaler INH 2 puff BID-RT DENISE Administration Ondansetron HCl 4 mg 01/21/19 10:19 01/21/19 10:48 Zofran Odt PO 4 mg Q6H PRN Administration Nausea/Vomiting Phosphorus 250 mg 01/21/19 08:00 01/21/19 18:21 Kphos Neutral PO 250 mg TID-WM DENISE Administration Potassium Chloride 40 meq 01/22/19 08:00 01/22/19 08:55 K-Dur PO 40 meq BID-WM DENISE Administration Saccharomyces Boulardii 250 mg 01/19/19 09:00 01/22/19 08:54 Florastor PO 250 mg DAILY DENISE Administration Sertraline HCl 100 mg 01/20/19 09:00 01/22/19 08:55 Zoloft PO 100 mg DAILY DENISE Administration Sodium Chloride 10 ml 01/19/19 21:37 01/21/19 00:59 Flush - Normal Saline IVF 10 ml PRN PRN Administration Saline Flush Thiamine HCl 100 mg 01/19/19 09:00 01/22/19 08:55 Thiamine PO 100 mg DAILY DENISE Administration - Exam General Appearance: NAD, awake alert Eye: PERRL, anicteric sclera ENT: normocephalic atraumatic, no oropharyngeal lesions Neck: supple, symmetric, no JVD, no thyromegaly Heart: RRR, no murmur, no gallops, no rubs Heart - other findings: tachycardia Respiratory: CTAB, no wheezes, no rales, no ronchi Gastrointestinal: soft, non-tender, non-distended, normal bowel sounds Extremities: no cyanosis, no clubbing, no edema Skin: normal turgor, no lesions, no rashes Neurological: cranial nerve grossly intact, no focal deficits Musculoskeletal: normal tone, normal strength Psychiatric: normal affect, normal behavior Hosp A/P (1) Acute metabolic encephalopathy Code(s): G93.41 - METABOLIC ENCEPHALOPATHY Status: Acute (2) Sepsis Code(s): A41.9 - SEPSIS, UNSPECIFIED ORGANISM Status: Acute Qualifiers: Sepsis type: sepsis due to unspecified organism (3) Hypomagnesemia Code(s): E83.42 - HYPOMAGNESEMIA Status: Resolved (4) Hyponatremia Code(s): E87.1 - HYPO-OSMOLALITY AND HYPONATREMIA Status: Acute (5) Hypokalemia Code(s): E87.6 - HYPOKALEMIA Status: Acute (6) Lactic acidosis Code(s): E87.2 - ACIDOSIS Status: Resolved (7) Hypertension Code(s): I10 - ESSENTIAL (PRIMARY) HYPERTENSION Status: Chronic (8) H/O: lung cancer Code(s): Z85.118 - PERSONAL HISTORY OF MALIGNANT NEOPLASM OF BRONCHUS AND LUNG Status: Chronic (9) Anxiety and depression Code(s): F41.9 - ANXIETY DISORDER, UNSPECIFIED; F32.9 - MAJOR DEPRESSIVE DISORDER, SINGLE EPISODE, UNSPECIFIED Status: Chronic (10) COPD (chronic obstructive pulmonary disease) Status: Chronic (11) Alcohol abuse Code(s): F10.10 - ALCOHOL ABUSE, UNCOMPLICATED Status: Chronic (12) Hypophosphatemia Code(s): E83.39 - OTHER DISORDERS OF PHOSPHORUS METABOLISM Status: Acute - Plan old records reviewed/req, plan discussed w/ family, continue antibiotics, PT/OT , 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 will repeat labs tomorrow, overall has some improvement, 01/21/19- today dc vancomycin as culture negative, change po levaquin, for hypertension add amlodipine and coreg and increase dose as needed, she will need outpt neurology clinic appointment for dementia evaluation, she will need routine follow up at [facility] for her cancer history, I have discussed with about this, I will repeat labs tomorrow, ambulate as tolerated, and start discharge planning, expecting in 24-48 hours [id number]/3018- will consult neurology to give opinion regarding her confused status, will change coreg to metoprolol 50 mg po bid for her tachycardia, recommended snu placement if pt agrees, will monitor today, not ready for discharge today
[2019-01-22] MEDS: K-Phos Neutral 250 MG TAB PO SCH ×3 (11:09→17:41)
[2019-01-22] MEDS ORDERED: Gadobenate Dimeglumine 529 MG/1 ML (20ML VIAL) ONE (12:38)
--- NOTE | 2019-01-22 16:19 | MRI ---
MRI Brain W WO Con: 01/22/2019 11:01 AM CLINICAL HISTORY: History of lung malignancy. COMPARISON: 04/10/2014 brain MRI, and head CT, 01/18/2019 FINDINGS: Prominent motion artifact throughout the exam does limit the evaluation. Extra axial spaces: Normal in size and morphology for the patient's age. Acute infarction: None. Ventricular system: Normal in size and morphology for the patient's age. Basal cisterns: Normal. Cerebral parenchyma: Microvascular ischemic changes. Midline shift: None. Cerebellum: Normal. Brainstem: Normal. Paranasal sinuses:Clear Intraaxial Enhancement: None IMPRESSION:No acute intracranial abnormality, within limitations.
[2019-01-22 17:41] VITALS: TEMP 97.9
[2019-01-22 18:28] VITALS: BP 175/79
--- NOTE | 2019-01-23 08:08 | DIS ---
DATE OF ADMISSION: 01/18/2019 DATE OF DISCHARGE: 01/22/2019 PRIMARY CARE PHYSICIAN: [facility] Call admission. DISCHARGE DISPOSITION: Home. PRIMARY DISCHARGE DIAGNOSES: 1. Acute metabolic encephalopathy. 2. Abnormal electrolytes with hypokalemia. 3. Hyponatremia. 4. Hypophosphatemia. 5. Sepsis, unclear source, resolved. SECONDARY DISCHARGE DIAGNOSES: Hypertension, history of lung cancer, chronic obstructive pulmonary disease, anxiety and depression, and alcohol abuse. PRIMARY PROCEDURE/OPERATION: None. RADIOLOGIST INVESTIGATION: MRI brain; CT chest, abdomen, and pelvis; CT brain, and chest x-ray. SIGNIFICANT LABORATORY DATA: Hemoglobin 12.6. Sodium 128 and creatinine 0.98. Cannabis positive in urine drug screen. Urine culture negative. DISCHARGE MEDICATIONS: 1. Levofloxacin 750 mg p.o. daily for three more days. 2. Lopressor 50 mg b.i.d. 3. Ambien 10 mg at bedtime. 4. Zoloft 100 mg daily. 5. Daliresp 500 mg p.o. daily. 6. DuoNeb. 7. Atrovent. 8. Combivent Respimat q.i.d. 9. Breo Ellipta inhalation daily. 10. Azelastine nasal spray daily. 11. Clidinium bromide one puff inhalation b.i.d. 12. Albuterol inhaler q.6 hourly p.r.n. CONTRAINDICATION: None. CODE STATUS: Full code. INPATIENT ELECTRIC METER REPAIRER HELPER: Dr. Kenji Cano, Neurology. TEST RESULT PENDING ON DISCHARGE: None. ALLERGIES: LISINOPRIL, PENICILLIN, AND MORPHINE. DISCHARGE PLAN: Posthospital, the patient will follow up with primary care physician. HOSPITAL COURSE: A 68-year-old female with above-mentioned medical problem, who was admitted by me, please see my HPI for further details. The patient was admitted for altered mental status. On admission, she was having high-grade fever at other emergency room with lactic acidosis, so we suspected sepsis. The patient also had lumbar puncture at other emergency room and CSF was normal and CSF culture was also negative. The patient did not have any obvious source of infection, but we empirically treated with levofloxacin and vancomycin while in hospital and on discharge, we prescribed three more days of levofloxacin. During entire hospital course, the patient did not have any fever and she remained stable. She was initially encephalopathic, but also improved. The patient had hyponatremia and other abnormal electrolytes that was corrected while in hospital. 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 We consulted Neurology. We did all workup for altered mental status that came back negative. At this point, the patient is back to her baseline level, but still confused. Family member did not want to take her to the retirement home and that is why per their request, we are discharging her home with home health. The patient is seen and examined at bedside today on the day of discharge, please see my progress note from that day. The patient is overall stable, but high risk for recurrent admission. Job ID: [id number]
[2019-01-23] MEDS ORDERED: Amlodipine 5 MG TAB PO SCH (09:00)
== END 2019-01-22 18:35 | disposition home or self-care (01) | DRG 871 ==
LOC: ERS 09:25 → 2SE 12:00
PROVIDERS: ADMIT Internal Medicine; ATTEND Internal Medicine
DX: A41.9 Sepsis, unspecified organism (principal); G93.41 Metabolic encephalopathy; E87.1 Hypo-osmolality and hyponatremia; E87.2 Acidosis; I10 Essential (primary) hypertension; F41.9 Anxiety disorder, unspecified; F32.9 Major depressive disorder, single episode, unspecified; Z88.0 Allergy status to penicillin; Z88.5 Allergy status to narcotic agent; Z87.891 Personal history of nicotine dependence; I16.0 Hypertensive urgency; E83.42 Hypomagnesemia; J44.9 Chronic obstructive pulmonary disease, unspecified; F10.10 Alcohol abuse, uncomplicated; Z85.118 Personal history of other malignant neoplasm of bronchus and lung; E83.39 Other disorders of phosphorus metabolism
CPT/HCPCS: 36415; 36416; 70450; 70470; 70553; 71045; 71260; 74177; 80048; 80053; 80202; 80306; 82607; 83605; 83735; 84100; 84443; 85025; 87086; 93005; 94640; J1650; J1885; J1956; J2060; J2543; J3370; J3411; J3475; J3480; J3490; J7042; J7050; J7620; Q0162; Q9966; S0028